=== PATIENT | male | born 1985 | race Caucasian/White ===

== ENCOUNTER 2018-03-05 17:58 | Emergency (ER) | payer MEDICAID ==
[~2018-03-05] VITALS: Ht 177.8 cm; Wt 77.3 kg
[2018-03-05 23:18] VITALS: BP 129/37
== END 2018-03-06 03:30 | disposition home or self-care (01) ==
LOC: ER 03-06 03:19
DX: S80.862A Insect bite (nonvenomous), left lower leg, initial encounter (principal); S80.861A Insect bite (nonvenomous), right lower leg, initial encounter; S40.862A Insect bite (nonvenomous) of left upper arm, initial encounter; S40.861A Insect bite (nonvenomous) of right upper arm, initial encounter; F17.200 Nicotine dependence, unspecified, uncomplicated; R03.0 Elevated blood-pressure reading, without diagnosis of hypertension; Z90.49 Acquired absence of other specified parts of digestive tract; W57.XXXA Bitten or stung by nonvenomous insect and other nonvenomous arthropods, initial encounter; Y93.89 Activity, other specified; Y92.89 Other specified places as the place of occurrence of the external cause
CPT/HCPCS: 99282

== ENCOUNTER 2018-03-29 00:41 | Emergency (ER) | payer MEDICAID ==
[~2018-03-29] VITALS: Ht 177.8 cm; Wt 80.0 kg
[2018-03-29] MEDS ORDERED: MECLIZINE 25MG TABLET PO ONE (03:15)
[2018-03-29 03:37] LABS: BASOPHILS % 0.4 % (0.0-2.0); EOSINOPHILS % 0.7 % (0.0-5.0); LYMPHOCYTES % 32.7 % (20.0-50.0); MEAN CORPUSCULAR HEMOGLOBIN 32.4 pg (28.0-32.0); MEAN CORPUSCULAR VOLUME 92.7 fL (80.0-94.0); MEAN PLATELET VOLUME 9.4 fl (7.4-10.4); MONOCYTES % 6.8 % (2.0-8.0); NEUTROPHILS % 59.4 % (40.0-76.0); PLATELET 187 x1000/uL (130-400); RED BLOOD CELL COUNT 4.64 mill/uL (4.7-6.1); RED CELL DISTRIBUTION WIDTH 12.2 % (11.6-14.6)
[2018-03-29 03:46] LABS: CHLORIDE 107 mEq/L (98-107)
[2018-03-29 05:32] VITALS: BP 104/72
== END 2018-03-29 07:20 | disposition home or self-care (01) ==
LOC: ER 07:15
DX: R42 Dizziness and giddiness (principal); R11.0 Nausea; F17.200 Nicotine dependence, unspecified, uncomplicated; Z90.49 Acquired absence of other specified parts of digestive tract; Z98.890 Other specified postprocedural states
CPT/HCPCS: 36415; 80048; 93005; 99285; J8597